=== PATIENT | female | born 1955 | race Two or more races ===

== ENCOUNTER 2016-12-29 03:01 | Observation (INO) | payer BC ==
[~2016-12-29] VITALS: Ht 152.4 cm; Wt 62.6 kg
[2016-12-29] MEDS ORDERED: ONDANSETRON HCL 4MG/2ML VIAL IV STA ×2 (03:34→03:38)
[2016-12-29] MEDS ORDERED: SODIUM CHLORIDE 0.9% 1,000 ML IV ONE (03:34)
[2016-12-29] MEDS ORDERED: ASPIRIN 81MG TABLET PO ONE (03:45)
[2016-12-29] MEDS ORDERED: PANTOPRAZOLE SODIUM 40 MG/VIAL IV ONE (03:45)
[2016-12-29] MEDS ORDERED: MECLIZINE 25MG TABLET PO SCH (03:45)
[2016-12-29 04:00] LABS: CLARITY URINE CLEAR (CLEAR); COLOR URINE YELLOW (YELLOW); GLUCOSE URINE NEGATIVE (NEGATIVE); KETONES URINE TRACE (NEGATIVE); LEUKOCYTE ESTERASE URINE NEGATIVE (NEGATIVE); NITRITE URINE NEGATIVE (NEGATIVE); OCCULT BLOOD URINE NEGATIVE (NEGATIVE); PH URINE 6.5 (4.5-8.0); PROTEIN URINE NEGATIVE (NEGATIVE); SPECIFIC GRAVITY URINE 1.021 (1.005-1.030); UROBILINOGEN URINE 0.2 E.U./dL (0.2-1.0)
[2016-12-29 04:23] LABS: BASOPHILS % 0.5 % (0.0-2.0); EOSINOPHILS % 0.8 % (0.0-5.0); HEMATOCRIT. 36.2 % (36.0-48.0); HEMOGLOBIN. 12.4 g/dL (12.0-16.0); LYMPHOCYTES % 29.7 % (20.0-50.0); MEAN CORPUSCULAR VOLUME 84.9 fL (81.0-99.0); MONOCYTES % 7.9 % (2.0-8.0); NEUTROPHILS % 61.1 % (40.0-76.0); PLATELET 360 x1000/uL (130-400); RED BLOOD CELL COUNT 4.26 mill/uL (4.2-5.4); RED CELL DISTRIBUTION WIDTH 14.4 % (11.6-14.6)
[2016-12-29 04:24] LABS: CARBON DIOXIDE 28 mEq/L (21-32); CHLORIDE 107 mEq/L (98-107); ETHANOL BLOOD < 10 mg/dL; TROPONIN I < 0.02 ng/mL (0.00-0.04)
[2016-12-29 04:26] LABS: PROTHROMBIN TIME 10.6 sec (9.4-11.6)
[2016-12-29 04:33] LABS: *AMPHETAMINES SCREEN URINE NEGATIVE (NEGATIVE); *BARBITURATES SCREEN URINE NEGATIVE (NEGATIVE); *BENZODIAZEPINES SCREEN URINE NEGATIVE (NEGATIVE); *COCAINE SCREEN URINE NEGATIVE (NEGATIVE); CANNABINOID URINE SCREEN NEGATIVE (NEGATIVE); METHADONE URINE SCREEN NEGATIVE (NEGATIVE); OPIATES URINE SCREEN NEGATIVE (NEGATIVE); PHENCYCLIDINE URINE SCREEN NEGATIVE (NEGATIVE)
[2016-12-29] MEDS ORDERED: LORAZEPAM 2MG/ML CPJ IV ONE (05:30)
[2016-12-29 08:30] VITALS: BP 125/60
[2016-12-29] MEDS ORDERED: LOSA50TA20 PO (08:39)
[2016-12-29] MEDS ORDERED: HYDR12.529 PO (08:40)
[2016-12-29] MEDS ORDERED: RANI300T4 PO (08:41)
[2016-12-29] MEDS ORDERED: PNEUMOCOCCAL 23-VAL P-SAC VAC 0.5 ML IM ONE (10:45)
[2016-12-29 11:58] LABS: HEMATOCRIT 33.6 % (36.0-48.0); HEMOGLOBIN 11.3 g/dL (12.0-16.0); MEAN CORPUSCULAR HEMOGLOBIN 28.9 pg (28.0-32.0); MEAN CORPUSCULAR VOLUME 85.4 fL (81.0-99.0); PLATELET 333 x1000/uL (130-400); RED BLOOD CELL COUNT 3.93 mill/uL (4.2-5.4); RED CELL DISTRIBUTION WIDTH 14.3 % (11.6-14.6)
[2016-12-29 12:00] VITALS: BP 103/54
[2016-12-29 12:19] LABS: CARBON DIOXIDE 26 mEq/L (21-32); CHLORIDE 107 mEq/L (98-107); TROPONIN I < 0.02 ng/mL (0.00-0.04)
[2016-12-29 16:00] VITALS: BP 108/55
[2016-12-29] MEDS ORDERED: HYDROCHLOROTHIAZIDE 12.5MG CAPSULE PO SCH (16:00)
[2016-12-29] MEDS ORDERED: LOSARTAN POTASSIUM 50 MG TABLET PO SCH (16:00)
[2016-12-29 18:09] VITALS: BP 108/55
[2016-12-29] MEDS ORDERED: MEDICATION NOT ON FORMULARY EA (Ranitidine Hcl 300 MG) PO SCH (21:00)
[2016-12-29] MEDS ORDERED: FAMOTIDINE 20MG TABLET PO SCH (21:00)
== END 2016-12-29 18:27 | disposition home or self-care (01) ==
LOC: ER 03:01 → INTOOBSV 04:25 → 7WST 04:25 → ENRESERV 07:13
PROVIDERS: ADMIT Family Medicine; ATTEND Family Medicine
DX: R11.2 Nausea with vomiting, unspecified (principal); I10 Essential (primary) hypertension; K21.9 Gastro-esophageal reflux disease without esophagitis; E86.0 Dehydration; E11.9 Type 2 diabetes mellitus without complications; D64.9 Anemia, unspecified; I25.10 Atherosclerotic heart disease of native coronary artery without angina pectoris
CPT/HCPCS: 36415; 70450; 71010; 80053; 80305; 81003; 83605; 83690; 83880; 84484; 85025; 85027; 85610; 93005; 96361; 96374; 96375; 99285; C9113; G0378; G0482; J2060; J2405; J7030